=== PATIENT | female | born 1975 | race Two or more races ===

== ENCOUNTER 2023-09-01 19:14 | Emergency (ER) | payer OTHER ==
[~2023-09-01] VITALS: Ht 165.1 cm; Wt 54.0 kg
[2023-09-01] MEDS ORDERED: SODIUM CHLORIDE 0.9% 1,000 ML IV ONE (20:15)
[2023-09-01 20:57] LABS: Alanine Aminotransferase 20 U/L (7-40); Alkaline Phosphatase 81 U/L (46-116); Anion Gap 4 (5-15); BUN/Creatinine Ratio 23.1 (10.0-20.0); Bilirubin, Total 0.5 mg/dL (0.2-1.0); Blood Urea Nitrogen 15 mg/dL (9-23); Calcium 9.8 mg/dL (8.7-10.4); Carbon Dioxide 30 mmol/L (20-30); Chloride 104 mmol/L (98-107); Glucose 137 mg/dL (74-106); Lipase 59 U/L (12-53); Potassium 3.8 mmol/L (3.5-5.1); Sodium 138 mmol/L (136-145); Total Protein 7.8 g/dL (5.7-8.2)
[2023-09-01 21:08] LABS: Basophils # (auto) 0 10 ^3/uL (0-0.2); Basophils % (auto) 0.3 % (0.0-2.0); Eosinophils # (auto) 0.1 10 ^3/uL (0-0.8); Eosinophils % (auto) 0.7 % (0.0-7.0); Hematocrit 38.6 % (36.0-46.0); Hemoglobin 12.7 g/dL (12.2-16.2); Lymphocytes # (auto) 1.4 10 ^3/uL (0.4-5.4); Lymphocytes % (auto) 16.4 % (10.0-50.0); Mean Corpuscular Hemoglobin 27.7 pg (28.0-32.0); Mean Corpuscular Hgb Conc. 32.8 g/dL (32.0-36.0); Mean Corpuscular Volume 84.5 fL (80.0-100.0); Monocytes # (auto) 0.5 10 ^3/uL (0-1.3); Monocytes % (auto) 5.5 % (0.0-12.0); Neutrophils # (auto) 6.7 10 ^3/uL (1.6-8.6); Neutrophils % (auto) 77.1 % (37.0-80.0); Red Blood Cells 4.57 10^6/uL (4.0-5.20); Red Cell Distribution Width 15.1 % (11.8-14.3); White Blood Cell 8.7 10^3/uL (4.4-10.8)
[2023-09-01 21:22] LABS: Urine Bacteria MANY /hpf (None Seen); Urine Blood 1+ /uL (Negative); Urine Clarity HAZY (Clear); Urine Color Yellow (Yellow); Urine Mucus FEW (None Seen); Urine Protein, UAD TRACE (Negative); Urine Specific Gravity 1.025 (1.001-1.035); Urine WBC 106 /hpf (0 - 5); Urine pH 5.5 (5.0-8.0)
[2023-09-01 21:32] LABS: Aspartate Aminotransferase 16 U/L (13-40)
[2023-09-02] MEDS ORDERED: FAMOTIDINE (10MG/ML) 2ML VL IV ONE (01:15)
[2023-09-02] MEDS ORDERED: CEFTRIAXONE SODIUM 2 GM in D5W 5% 100 ML IV ONE (01:15)
[2023-09-02] MEDS ORDERED: MORPHINE SULFATE 4 MG/ML SYR/VIAL IV ONE (01:15)
[2023-09-02] MEDS ORDERED: ONDANSETRON HCL 4 MG/2 ML VIAL IV ONE (01:15)
[2023-09-02] MEDS ORDERED: DICY10CA PO (01:20)
[2023-09-02] MEDS ORDERED: ZOFR4T PO (01:20)
[2023-09-02] MEDS ORDERED: TAMS-35 PO (01:20)
[2023-09-02] MEDS ORDERED: CIPR-173 PO (01:20)
[2023-09-02] MEDS ORDERED: cefTRIAXone 1GM/50ML D5W 50 ML IV ONE ×3 (01:54→02:30)
[2023-09-02 03:33] VITALS: BP 112/63; PULSE 52; RESP 16; O2SAT 100
== END 2023-09-02 03:36 | disposition home or self-care (01) ==
LOC: ER 19:14
DX: N39.0 Urinary tract infection, site not specified (principal); R10.2 Pelvic and perineal pain; K52.9 Noninfective gastroenteritis and colitis, unspecified; N20.0 Calculus of kidney
CPT/HCPCS: 36415; 74176; 80053; 81001; 83605; 83690; 84702; 85025; 96365; 96375; 99285; J0696; J2270; J2405; J3490; J7030; J7060